=== PATIENT | female | born 1960 | race Caucasian/White ===

== ENCOUNTER 2017-08-06 09:04 | Outpatient (CLI) | payer OTHER ==
--- NOTE | 2017-08-06 13:26 | XRAY Report ---
TWO VIEW CHEST: 08/06/2017 CLINICAL INDICATION: Shortness of breath. FINDINGS: Frontal and lateral views of the chest demonstrate a normal cardiac silhouette. The lungs are clear. No effusion or pneumothorax is present. IMPRESSION: NORMAL CHEST. TD: 08/06/2017 13:25
== END 2017-08-06 09:05 | disposition home or self-care (01) ==
LOC: DI 09:04
PROVIDERS: ATTEND Physician Assistant
DX: R06.02 Shortness of breath (principal); R07.9 Chest pain, unspecified; Z82.49 Family history of ischemic heart disease and other diseases of the circulatory system
CPT/HCPCS: 71046; 93306

== ENCOUNTER 2017-08-06 09:08 | Outpatient (CLI) | payer OTHER | END 2017-08-06 09:09 | disposition home or self-care (01) | LOC: RT 09:08 | PROVIDERS: ATTEND Physician Assistant | DX: R07.9 Chest pain, unspecified (principal); R06.09 Other forms of dyspnea; R00.2 Palpitations | CPT/HCPCS: 93005 ==

== ENCOUNTER 2020-01-11 19:49 | Outpatient (CLI) | payer OTHER | END 2020-01-11 19:50 | disposition home or self-care (01) | LOC: COV 19:49 | PROVIDERS: ATTEND Family Medicine | DX: R05 Cough (principal); R06.02 Shortness of breath; R53.83 Other fatigue; R09.81 Nasal congestion; R11.2 Nausea with vomiting, unspecified; Z20.828 Contact with and (suspected) exposure to other viral communicable diseases ==